=== PATIENT | male | born 1940 | race Caucasian/White ===

== ENCOUNTER 2016-10-26 13:03 | Emergency (ER) | payer OTHER, MEDICARE ==
[~2016-10-26] VITALS: Ht 180.3 cm; Wt 100.0 kg
[~2016-10-26 13:03] MED LIST: ADVA250A INH; ASPI81 PO; CORE25TA PO; FURO1TAB93 PO; INSPRA PO; JANU50TA5 PO; LIPI40TA PO; RAMI10CA PO; SPIRCAP INH
[2016-10-26 13:15] VITALS: BP 136/74; PULSE 81; RESP 18; TEMP 97.6; O2SAT 96
[2016-10-26] MEDS ORDERED: IPRAAER INH (13:50)
[2016-10-26] MEDS ORDERED: RAMI10CA PO (13:50)
[2016-10-26] MEDS ORDERED: FISH500C PO (13:50)
[2016-10-26] MEDS ORDERED: FURO40TA PO (13:50)
[2016-10-26] MEDS ORDERED: ASPI81CH CHEW (13:50)
[2016-10-26] MEDS ORDERED: SITA1TAB2 PO (13:50)
[2016-10-26] MEDS ORDERED: CHOL100025 CHEW (13:50)
[2016-10-26] MEDS ORDERED: SPIRCAP INH (13:50)
[2016-10-26] MEDS ORDERED: SYMB160A INH (13:50)
[2016-10-26] MEDS ORDERED: LUTE1TAB PO (13:50)
[2016-10-26] MEDS ORDERED: ALLO100T PO (13:50)
[2016-10-26] MEDS ORDERED: CARV6.25 PO (13:50)
[2016-10-26] MEDS ORDERED: ATOR20TA15 PO (13:50)
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
--- NOTE | 2016-10-26 15:13 | RADHPO ---
EXAM DATE/TIME: 10/26/2016 14:40 [place] COMPARISON: No previous studies available for comparison. INDICATIONS : Headache with visual disturbance. RADIATION DOSE: 58.76 CTDIvol (mGy) MEDICAL HISTORY : Chronic obstructive pulmonary disease. Carcinoma, colon. Congestive heart failure.Hypertension. SURGICAL HISTORY : Appendectomy. Colon resection.Orthopedic surgery. ENCOUNTER: Initial ACUITY: 1 day PAIN SCALE: 4/10 LOCATION: cranial TECHNIQUE: Multiple contiguous axial images were obtained of the head. Using automated exposure control and adj ustment of the mA and/or kV according to patient size, radiation dose was kept as low as reasonably a chievable to obtain optimal diagnostic quality images. FINDINGS: CEREBRUM: Mild cortical atrophy. The ventricles are normal for age. No evidence of midline shift, mass lesion, hemorrhage or acute infarction. No extra-axial fluid collections are seen. POSTERIOR FOSSA: The cerebellum and brainstem are intact. The 4th ventricle is midline. The cerebellopontine angle i s unremarkable. EXTRACRANIAL: The visualized portion of the orbits is intact. SKULL: The calvaria is intact. No evidence of skull fracture. CONCLUSION: No acute intracranial disease. Cortical atrophy. Dennys Clay MD on October 26, 2016 at 15:11 Board Certified Radiologist. This report was verified electronically.
[2016-10-26] MEDS ORDERED: ACETAMINOPHEN 500 MG CPLT PO ONE (15:15)
[2016-10-26 15:17] VITALS: BP_SYST 123; BP_SYST 141; BP_DIAS 63; BP_DIAS 75; PULSE 76; PULSE 96; RESP 16; RESP 20; O2SAT 94
[2016-10-26] MEDS ORDERED: ACET500T3 PO (15:52)
== END 2016-10-26 16:03 | disposition home or self-care (01) ==
LOC: PHED 13:03
DX: R51 Headache (principal); H53.8 Other visual disturbances; M54.2 Cervicalgia; E11.9 Type 2 diabetes mellitus without complications; I10 Essential (primary) hypertension; Z79.84 Long term (current) use of oral hypoglycemic drugs; Z87.09 Personal history of other diseases of the respiratory system; Z86.79 Personal history of other diseases of the circulatory system; Z85.038 Personal history of other malignant neoplasm of large intestine; Z85.828 Personal history of other malignant neoplasm of skin
CPT/HCPCS: 70450